=== PATIENT | female | born 1980 | race Caucasian/White ===

== ENCOUNTER 2017-10-17 23:03 | Emergency (ER) | payer SELFPAY ==
[~2017-10-17] VITALS: Ht 152.4 cm; Wt 58.1 kg
--- NOTE | 2017-10-17 23:25 | NUR ---
Dr. Urena at bedside for MSE.
--- NOTE | 2017-10-18 00:23 | NUR ---
PT STATES READY TO GO HOME NOW.D/C HOME WITH [facility] EXPLAIED TO PT SHE VERBALIZES UNDERSTANDING
[2017-10-18 00:25] VITALS: BP 120/82
== END 2017-10-18 00:27 | disposition home or self-care (01) ==
LOC: ER 23:04
DX: S06.0X0A Concussion without loss of consciousness, initial encounter (principal); S16.1XXA Strain of muscle, fascia and tendon at neck level, initial encounter; W01.198A Fall on same level from slipping, tripping and stumbling with subsequent striking against other object, initial encounter; Y93.23 Activity, snow (alpine) (downhill) skiing, snowboarding, sledding, tobogganing and snow tubing; Y92.89 Other specified places as the place of occurrence of the external cause; Y99.8 Other external cause status
CPT/HCPCS: 70450; 72125; A4663

== ENCOUNTER 2018-04-26 21:19 | Emergency (ER) | payer BC, OTHER ==
[~2018-04-26] VITALS: Ht 157.5 cm; Wt 65.8 kg
--- NOTE | 2018-04-26 21:35 | NUR ---
at bedside for eval
[2018-04-26] MEDS ORDERED: IBUPROFEN 800 MG TABLET ONE (21:44)
[2018-04-26] MEDS ORDERED: IBUPROFEN 800 MG TABLET PO ONE (21:45)
--- NOTE | 2018-04-26 22:07 | NUR ---
Patient discharged to home in stable conditon. Written and verbal after care instructions given. Patient verbalizes understanding of instructions. Unable to ambulate and using wheelchair at this time. at bedside with all belongings.
[2018-04-26 22:09] VITALS: BP 137/78
== END 2018-04-26 22:27 | disposition home or self-care (01) ==
LOC: ER 21:21
DX: M25.562 Pain in left knee (principal)
CPT/HCPCS: A4663

== ENCOUNTER 2018-06-06 03:16 | Emergency (ER) | payer BC, OTHER ==
[~2018-06-06] VITALS: Ht 152.4 cm; Wt 58.1 kg
[2018-06-06 03:46] LABS: *URINE HCG, QUAL NEGATIVE (NEGATIVE)
--- NOTE | 2018-06-06 04:03 | NUR ---
Patient discharged to home in stable conditon. Written and verbal after care instructions given. Patient verbalizes understanding of instructions.
--- NOTE | 2018-06-06 07:14 | NUR ---
Nursing Histology Aide reported to staff that per hospital policy the patient is required to perform a drug screen. This instruction was given after the patient was discharged. Order added by protocol as instructed.
[2018-06-06 07:31] LABS: *AMPHETAMINE, URINE NEGATIVE (NEGATIVE); *BARBITURATE, URINE NEGATIVE (NEGATIVE); *CANNABINOID, URINE NEGATIVE (NEGATIVE); *COCCAINE, URINE NEGATIVE (NEGATIVE); *OPIATE, URINE NEGATIVE (NEGATIVE); *PHENCYCLIDINE SCREEN,URINE NEGATIVE (NEGATIVE)
== END 2018-06-06 04:03 | disposition home or self-care (01) ==
LOC: ER 03:17
DX: M54.5 Low back pain (principal); J45.909 Unspecified asthma, uncomplicated
CPT/HCPCS: 72100; 80307; 84703; A4663